=== PATIENT | male | born 1990 | race Caucasian/White ===

== ENCOUNTER 2017-01-31 22:32 | Emergency (ER) | payer SELFPAY ==
[~2017-01-31] VITALS: Ht 165.1 cm; Wt 68.0 kg
[~2017-01-31 22:32] MED LIST: AMOXICILLIN500 MG PO; BACTRIM DS 8001 TA1 PO; BENADRYL25 MG PO; LIDEX0.05% T; MEDROL DOSEPAK4 MG PO; MOTRIN400 MG PO; MUCINEX DM 30/61 TAB PO; NKHM; OMEPRAZOLE20 MG PO; PEPCID AC20 MG PO; PEPCID20 MG PO; PREDNICOT10 MG PO; PREDNICOT20 MG PO; PRILOSEC20 MG PO; SUDAFED60 M1 PO; TAMIFLU75 MG PO; VIBRAMYCIN100 MG PO; ZOFRAN ODT4 MG SL; ZOFRAN4 MG PO; Zofran4 MG PO
[2017-01-31] MEDS ORDERED: CEPHALEXIN500 M1 PO (23:10)
[2017-01-31] MEDS ORDERED: BACTRIM DS 8001 TA1 PO (23:10)
== END 2017-01-31 23:13 | disposition home or self-care (01) ==
LOC: ED 22:32
DX: J34.0 Abscess, furuncle and carbuncle of nose (principal); F17.200 Nicotine dependence, unspecified, uncomplicated; Z88.8 Allergy status to other drugs, medicaments and biological substances

== ENCOUNTER 2017-09-19 12:42 | Emergency (ER) | payer SELFPAY ==
[~2017-09-19] VITALS: Ht 167.6 cm; Wt 68.0 kg
[~2017-09-19 12:42] MED LIST changes: +CEPHALEXIN500 M1 PO
[2017-09-19 13:09] LABS: BASO % 0.5 % (0.0-1.0); EOS # 0.2 10*3/uL (0.0-0.4); EOS % 4.2 % (1.0-4.0); HEMOGLOBIN 15.5 g/dl (14.0-18.0); LYMPH # 1.9 10*3/uL (1.3-4.4); LYMPH % 33.2 % (27.0-41.0); MEAN CELL VOLUME 85.6 fl (80.0-94.0); MEAN CORPUSCULAR HGB 29.5 pg (27.0-31.0); MEAN CORPUSCULAR HGB CONC 34.4 g/dl (33.0-37.0); MEAN PLATELET VOLUME 10.4 fl (9.6-12.3); MONO # 0.5 10*3/uL (0.1-1.0); MONO % 8.4 % (3.0-9.0); NEUT # 3.1 10*3/uL (2.3-7.9); NEUT % 53.7 % (47.0-73.0); PLATELET COUNT AUTOMATED 216 10*3/uL (130-400); RED BLOOD COUNT 5.26 10*6/uL (4.50-5.90); RED CELL DISTRI WIDTH 12.6 % (0-14.5); WHITE BLOOD COUNT 5.7 10*3/uL (4.8-10.8)
[2017-09-19 13:24] LABS: ALBUMIN 4.2 gm/dl (3.1-4.5); ALKALINE PHOSPHATASE 87 U/L (45-117); BUN 12 mg/dl (7-24); CHLORIDE 106 mmol/L (98-107); CREATININE 0.95 mg/dL (0.70-1.30); LIPASE 180 U/L (73-393); POTASSIUM 3.8 mmol/L (3.5-5.1); SGOT/AST 15 IU/L (3-35); SGPT/ALT 23 U/L (12-78); SODIUM 140 mmol/L (136-145); TOTAL PROTEIN 8.3 gm/dL (6.4-8.2)
[2017-09-19 13:31] LABS: BILIRUBIN NEGATIVE (NEGATIVE); BLOOD NEGATIVE (NEGATIVE); CLARITY CLEAR (CLEAR); COLOR YELLOW (YELLOW); GLUCOSE NEGATIVE (NEGATIVE); KETONE NEGATIVE (NEGATIVE); LEUKO ESTERASE NEGATIVE (NEGATIVE); NITRITE NEGATIVE (NEGATIVE); UROBILINOGEN 0.2 E.U./dl (0.2-1.0)
[2017-09-19 13:48] LABS: EPITHELIAL CELLS 0-2; MUCOUS 1+; WBC 0-2 wbc/hpf (0-5)
[2017-09-19] MEDS ORDERED: ZOFRAN ODT4 MG SL (13:56)
== END 2017-09-19 14:21 | disposition home or self-care (01) ==
LOC: ED 12:42
PROVIDERS: Nurse Practitioner Family
DX: R11.2 Nausea with vomiting, unspecified (principal); K29.00 Acute gastritis without bleeding; Z88.8 Allergy status to other drugs, medicaments and biological substances

== ENCOUNTER 2018-05-26 08:32 | Emergency (ER) | payer OTHER ==
[~2018-05-26] VITALS: Ht 165.1 cm; Wt 72.6 kg
[2018-05-26] MEDS ORDERED: SUBOXONE 8 MG-1 EACH SL (08:38)
[2018-05-26] MEDS ORDERED: POLYTRIM 1000010 M1 OPH (09:25)
== END 2018-05-26 09:27 | disposition home or self-care (01) ==
LOC: ED 08:32
DX: H10.32 Unspecified acute conjunctivitis, left eye (principal); K21.9 Gastro-esophageal reflux disease without esophagitis; Z88.8 Allergy status to other drugs, medicaments and biological substances; Z79.899 Other long term (current) drug therapy; Z86.14 Personal history of Methicillin resistant Staphylococcus aureus infection

== ENCOUNTER 2018-11-08 11:00 | Emergency (ER) | payer SELFPAY ==
[~2018-11-08] VITALS: Ht 167.6 cm; Wt 72.6 kg
[~2018-11-08 11:00] MED LIST changes: +POLYTRIM 1000010 M1 OPH; +SUBOXONE 8 MG-1 EACH SL
== END 2018-11-08 13:48 | disposition home or self-care (01) ==
LOC: ED 11:00
DX: S63.501A Unspecified sprain of right wrist, initial encounter (principal); S60.221A Contusion of right hand, initial encounter; J45.909 Unspecified asthma, uncomplicated; Z88.8 Allergy status to other drugs, medicaments and biological substances; W01.0XXA Fall on same level from slipping, tripping and stumbling without subsequent striking against object, initial encounter; Y93.89 Activity, other specified; Y92.89 Other specified places as the place of occurrence of the external cause; Y99.8 Other external cause status

== ENCOUNTER 2019-05-18 00:32 | Emergency (ER) | payer SELFPAY ==
[~2019-05-18] VITALS: Ht 162.5 cm; Wt 68.0 kg
[2019-05-20] MEDS ORDERED: OMNICEF300 MG PO (21:24)
[2019-05-20] MEDS ORDERED: CILOXAN 5 ML5 ML OPH (21:24)
== END 2019-05-18 01:12 | disposition home or self-care (01) ==
LOC: ED 00:32
DX: H10.33 Unspecified acute conjunctivitis, bilateral (principal); K21.9 Gastro-esophageal reflux disease without esophagitis; J45.909 Unspecified asthma, uncomplicated; Z88.8 Allergy status to other drugs, medicaments and biological substances

== ENCOUNTER 2020-11-04 09:17 | Emergency (ER) | payer SELFPAY ==
[~2020-11-04] VITALS: Wt 65.8 kg
[~2020-11-04 09:17] MED LIST changes: +CILOXAN 5 ML5 ML OPH; +OMNICEF300 MG PO
[2020-11-04] MEDS ORDERED: PENICILLIN-VK500 MG PO (09:39)
[2020-11-04] MEDS ORDERED: Motrin,Rufen800 MG PO (09:48)
== END 2020-11-04 10:15 | disposition home or self-care (01) ==
LOC: ED 09:17
DX: K04.7 Periapical abscess without sinus (principal); K02.9 Dental caries, unspecified; Z88.8 Allergy status to other drugs, medicaments and biological substances